=== PATIENT | female | born 1995 | race Caucasian/White ===

== ENCOUNTER 2020-04-07 14:36 | Emergency (ER) | payer OTHER ==
[2020-04-07] MEDS ORDERED: MAGNESIUM SULF 50% (8.12 MEQ/2 ML-1 GM VIAL) IVPB ONE (14:54)
[2020-04-07] MEDS ORDERED: ACETAMINOPHEN 1000 MG/100 ML VIAL (NON FORMULARY) IVPB ONE (14:55)
--- NOTE | 2020-04-07 14:56 | PDOC ---
Rapid Medical Evaluation Time Seen by Provider: 04/07/20 14:52 Medical Evaluation: 04/07/20 14:52 I have performed a brief in-person examination on this patient. CC: headache, nausea, elevated BP; 30wks gestation- PE: No focal findings Orders: labs, urine, magnesium Patient will proceed to ED for further evaluation. Discharge Disposition - Diagnosis Headache - Referrals - Patient Instructions - Post Discharge Activity
[2020-04-07 14:58] VITALS: BMI 24.7
[2020-04-07 16:11] VITALS: TEMP 98.1
[2020-04-07 16:55] LABS: EPI CELLS >36 /uL (0-25.1); HYALINE CASTS 5 /uL (0-3.1); URINE APPEARANCE TURBID; URINE BACTERIA 1858 /uL (0-1359); URINE BILIRUBIN NEGATIVE (NEGATIVE); URINE COLOR YELLOW; URINE GLUCOSE (UA) NEGATIVE (NEGATIVE); URINE KETONE NEGATIVE (NEGATIVE); URINE LEUK ESTERASE 3+ (NEGATIVE); URINE NITRITE NEGATIVE (NEGATIVE); URINE PROTEIN NEGATIVE (NEGATIVE); URINE RBC 36 /uL (0-23.9); URINE UROBILINOGEN 0.2 mg/dL (0.2-1.0); URINE WBC 161 /uL (0-25.8)
[2020-04-07 17:31] VITALS: BP 112/68; PULSE 76
[2020-04-07 17:49] LABS: URIC ACID 2.6 mg/dL (2.6-7.2)
--- NOTE | 2020-04-07 18:36 | PD.OB.PROG ---
Past Medical History - Primary Care Physician PCP:: Cinthia Huitron Documenting Provider Type: Attending - Admission Chief Complaint: Referred to exclude preelampsia History of Present Illness: 24 yo , KATHLEEN 05/31/20, EGG 32 weeks 2 days presented as above No bleeding or leaking fluid per vagina History Source: Patient Limitations to Obtaining History: No Limitations - Nursing Documentation Maternal Triage Index: Maternal Triage Index ( Priority 3, Prompt MFTI) Nursing Documentation Reviewed: Yes - Past Medical History AGENCY LEGAL COUNSEL: Denies/None Cardio/Vascular: Denies/None Pulmonary: Denies/None Gastrointestinal: Denies/None Hepatobiliary: Denies/None Renal/: Denies/None ...: 2 ...Para: 1 ...Term: 1 ...LMP: 08/25/19 ... Weeks Gestation by Dates: 32.2 ...EDC by Dates: 05/31/20 Heme/Onc: Denies/None Infectious Disease: Denies/None Musculoskeletal: Denies/None Rheumatology: Denies/None Endocrine: Denies/None - Smoking History Smoking history: Never smoked Have you smoked in the past 12 months: No - Alcohol/Substance Use Hx Alcohol Use: No - Social History Do you think of yourself as: Straight/Heterosexual History of Recent Travel: No Review of Systems - Review of Systems Constitutional: reports: No Symptoms Eyes: reports: No Symptoms HENT: reports: No Symptoms Neck: reports: No Symptoms Cardiovascular: reports: No Symptoms Respiratory: reports: No Symptoms Gastrointestinal: reports: No Symptoms Genitourinary: reports: No Symptoms Breasts: reports: No Symptoms Reported Musculoskeletal: reports: No Symptoms Integumentary: reports: No Symptoms Neurological: reports: No Symptoms Endocrine: reports: No Symptoms Hematology/Lymphatic: reports: No Symptoms Psychiatric: reports: No Symptoms Physical Exam - Obstetrical Vital Signs: Vital Signs Temperature 98.1 F 04/07/20 16:07 Pulse Rate 76 04/07/20 17:30 Respiratory Rate 18 04/07/20 17:30 Blood Pressure 112/68 04/07/20 17:30 O2 Sat by Pulse Oximetry (%) 100 04/07/20 14:53 Constitutional: Yes: Well Nourished Eyes: Yes: WNL HENT: Yes: WNL Neck: Yes: WNL Cardiovascular: Yes: WNL - Abdominal Exam/OB Fundal Height: 32 Number of Fetuses: Single Presentation: Vertex Contractions: No Monitor Mode: External Heart Rate (range): 135 Heart Rate Location: [facility] Category: I Accelerations: Uniform Decelerations: None - Vaginal Exam/OB Vaginal Exam Deferred: Yes Vaginal Bleeding: No Speculum Exam: No Dilatation (cm): 0 Effacement (%): 0 Amniotic Membrane Status: Intact Presentation: Vertex/Position Station: -3 - Physical Exam Musculoskeletal: Yes: WNL Extremities: Yes: WNL Edema: No Integumentary: Yes: WNL ...Motor Strength: WNL Psychiatric: Yes: WNL - Labs Lab Results: CBC, BMP 04/07/20 17:00 Problem List - Problems (1) 32 weeks gestation of Code(s): Z3A.32 - 32 WEEKS GESTATION OF (2) Urinary tract infection during in third trimester, antepartum Code(s): O23.43 - UNSP INFCT OF URINARY TRACT IN , THIRD TRIMESTER Assessment/Plan Late gestation not in labor Vital signs stable Preelamptic labs result within normal limits Urinalysis showed leukoesterase 3+ Macrobid prescribed. Discharge home with labor precautions. Follow up at clinic on 04/09/20
== END 2020-04-07 18:25 | disposition home or self-care (01) ==
LOC: JER 14:36
PROC: 3E0333Z Introduction of Anti-inflammatory into Peripheral Vein, Percutaneous Approach (ICD-10-PCS; principal; 2020-04-07)
PROC: 3E033GC Introduction of Other Therapeutic Substance into Peripheral Vein, Percutaneous Approach (ICD-10-PCS; 2020-04-07)
DX: R51 Headache (principal); Z3A.32 32 weeks gestation of pregnancy
CPT/HCPCS: 36415; 81003; 82977; 83010; 84450; 84460; 84550; 85032; 85045; 99284-25